=== PATIENT | female | born 1995 | race Caucasian/White ===

== ENCOUNTER 2019-08-20 18:31 | Emergency (ER) | payer BC, MEDICAID ==
[~2019-08-20] VITALS: Ht 167 cm; Wt 52.4 kg
[2019-08-20] MEDS ORDERED: FAMOTIDINE 20MG/2ML IV (PEPCID) IVP ONE (18:45)
[2019-08-20] MEDS ORDERED: ONDANSETRON 4 MG/2 ML (SDV) Z0FRAN IVP ONE (18:45)
[2019-08-20 19:08] LABS: BASOPHILS % (AUTO) 0 % (0-10); EOSINOPHILS % (AUTO) 0 % (0-10); HEMATOCRIT 45 % (35-52); HEMOGLOBIN 15.1 G/DL (11.5-16.0); LYMPHOCYTES % (AUTO) 2 % (12-44); MEAN CORPUSCULAR HEMOGLOBIN 31 PG (25-34); MEAN CORPUSCULAR HGB CONC 34 G/DL (32-36); MEAN CORPUSCULAR VOLUME 91 FL (80-99); MONOCYTES % (AUTO) 4 % (0-12); PLATELET COUNT 209 10^3/uL (130-400); RED CELL DISTRIBUTION WIDTH 12.3 % (10.0-14.5); WHITE BLOOD COUNT 14.7 10^3/uL (4.3-11.0)
[2019-08-20] MEDS: NS IV 1000 ML 1,000 ML IV SCH ×2 (19:08→19:56)
[2019-08-20 19:09] LABS: LYMPHOCYTES # (AUTO) 0.3 X 10^3 (1.0-4.0); MONOCYTES # (AUTO) 0.6 X 10^3 (0.0-1.0); NEUTROPHILS # (AUTO) 13.7 X 10^3 (1.8-7.8); NEUTROPHILS % (AUTO) 94 % (42-75)
--- NOTE | 2019-08-20 19:14 | ED Abdominal Pain ---
General Chief Complaint: Abdominal/GI Problems Stated Complaint: VOMITING, PT 11 WEEKS Nursing Triage Note: Started vomiting around noon today and has been vomiting approximately every 30 minutes. States her son has been sick with a stomach bug. Is [address] Barrientos is her ob doctor. Sepsis Screen: No Definite Risk Source of Information: Patient History of Present Illness Date Seen by Provider: Aug 20, 2019 Time Seen by Provider: 18:50 Initial Comments Patient is a 24-year-old G2, P1, estimated 11 week gestation feel fell who presents with daily nausea and vomiting for the past several weeks and reported 15 pound weight loss as far during current . Patient reports diffuse abdominal pain, cramping with multiple emesis in the past several hours with inability to keep fluids and food down. Patient states she is also being exposed to recent GI illness as her [id number] son has stomach flu. Patient states she has Zofran at home but did not want wish to take she expressed concern that doing so may prolong her current illness. No fever chills or sweats. No hematemesis. No other acute symptoms or complaints. Timing/Duration: 4-6 Hours Severity/Quality: Moderate Location: Epigastric Radiation: No Radiation Activities at Onset: None Modifying Factors: Improves With Antacids Associated Symptoms: Nausea/Vomiting Allergies and Home Medications Allergies Coded Allergies: No Known Drug Allergies (Unverified , 08/20/19) Patient Home Medication List Home Medication List Reviewed: Yes Review of Systems Review of Systems Constitutional: see HPI EENTM: See HPI Respiratory: See HPI Cardiovascular: See HPI Gastrointestinal: See HPI Genitourinary: See HPI Musculoskeletal: see HPI Skin: see HPI Psychiatric/Neurological: See HPI Endocrine: See HPI Hematologic/Lymphatic: See HPI Past Epyotsz-Fguftq-Fpolif Hx Patient Social History Alcohol Use: Denies Use Recreational Drug Use: No Smoking Status: Never a Smoker 2nd Hand Smoke Exposure: No Recent Foreign Travel: No Contact w/Someone Who Travel: No Recent Infectious Disease Expo: No Recent Hopitalizations: No Physical Abuse: No Sexual Abuse: No Mistreated: No Fear: No Seasonal Allergies Seasonal Allergies: No Past Medical History Surgeries: No Respiratory: No Cardiac: No Neurological: No Genitourinary: No Gastrointestinal: No Musculoskeletal: No Endocrine: No HEENT: No Cancer: No Psychosocial: No Integumentary: No Physical Exam Vital Signs Vital Signs - First Documented 08/20/19 18:46 Temp 36.4 Pulse 101 Resp 18 B/P (MAP) 119/79 (92) Pulse Ox 99 Capillary Refill : Less Than 3 Seconds Height/Weight/BMI Height: '" Weight: lbs. oz. kg; 18.00 BMI Method: General Appearance: WD/WN, no apparent distress HEENT: PERRL/EOMI Neck: non-tender, full range of motion, supple Respiratory: chest non-tender, lungs clear Cardiovascular: normal peripheral pulses, regular rate, rhythm Gastrointestinal: soft, tenderness (diffuse abdmominal pain/ttp) Extremities: normal range of motion, non-tender Back: normal inspection, no CVA tenderness Pelvic: normal adnexa Neurologic/Psychiatric: event decorator II-XII nml as tested, normal mood/affect Focused Exam Sepsis Stage: Ruled Out Progress/Results/Core Measures Results/Orders Lab Results Laboratory Tests Test 08/20/19 18:38 08/20/19 18:59 Range/Units Urine Color YELLOW Urine Clarity CLEAR Urine pH 6.0 5-9 Urine Specific [place] >=1.030 1.016-1.022 Urine Protein NEGATIVE NEGATIVE Urine Glucose (UA) NEGATIVE NEGATIVE Urine Ketones 3+ H NEGATIVE Urine Nitrite NEGATIVE NEGATIVE Urine Bilirubin NEGATIVE NEGATIVE Urine Urobilinogen 0.2 NORMAL MG/DL Urine Leukocyte Esterase NEGATIVE NEGATIVE Urine RBC (Auto) NEGATIVE NEGATIVE White Blood Count 14.7 H 4.3-11.0 10^3/uL Red Blood Count 4.91 4.35-5.85 10^6/uL Hemoglobin 15.1 11.5-16.0 G/DL Hematocrit 45 35-52 % Mean Corpuscular Volume 91 80-99 FL Mean Corpuscular Hemoglobin 31 25-34 PG Mean Corpuscular Hemoglobin Concent 34 32-36 G/DL Red Cell Distribution Width 12.3 10.0-14.5 % Platelet Count 209 130-400 10^3/uL Mean Platelet Volume 10.0 7.4-10.4 FL Neutrophils (%) (Auto) 94 H 42-75 % Lymphocytes (%) (Auto) 2 L 12-44 % Monocytes (%) (Auto) 4 0-12 % Eosinophils (%) (Auto) 0 0-10 % Basophils (%) (Auto) 0 0-10 % Neutrophils # (Auto) 13.7 H 1.8-7.8 X 10^3 Lymphocytes # (Auto) 0.3 L 1.0-4.0 X 10^3 Monocytes # (Auto) 0.6 0.0-1.0 X 10^3 Eosinophils # (Auto) 0.0 0.0-0.3 10^3/uL Basophils # (Auto) 0.0 0.0-0.1 10^3/uL Neutrophils % (Manual) 62 % Lymphocytes % (Manual) 3 % Monocytes % (Manual) 5 % Band Neutrophils 30 % Blood Morphology Comment NORMAL Sodium Level 139 135-145 MMOL/L Potassium Level 3.7 3.6-5.0 MMOL/L Chloride Level 103 98-107 MMOL/L Carbon Dioxide Level 22 21-32 MMOL/L Anion Gap 14 5-14 MMOL/L Blood Urea Nitrogen 13 7-18 MG/DL Creatinine 0.62 0.60-1.30 MG/DL Estimat Glomerular Filtration Rate > 60 BUN/Creatinine Ratio 21 Glucose Level 117 H 70-105 MG/DL Calcium Level 9.8 8.5-10.1 MG/DL Corrected Calcium 8.5-10.1 MG/DL Total Bilirubin 0.4 0.1-1.0 MG/DL Aspartate Amino Transf (AST/SGOT) 17 5-34 U/L Alanine Aminotransferase (ALT/SGPT) 15 0-55 U/L Alkaline Phosphatase 79 40-136 U/L Total Protein 8.0 6.4-8.2 GM/DL Albumin 4.9 H 3.2-4.5 GM/DL Human Chorionic Gonadotropin, Quant 33634 H <5 MIU/ML My Orders Orders - SANDRA WOO DO Cbc With Automated Diff (08/20/19 18:45) Comprehensive Metabolic Panel (08/20/19 18:45) Hcg,Quantitative (08/20/19 18:45) Ns Iv 1000 Ml (Sodium Chloride 0.9%) (08/20/19 18:45) Famotidine Injection (Pepcid Injection) (08/20/19 18:45) Ondansetron Injection (Zofran Injectio (08/20/19 18:45) Ed Iv/Invasive Line Start (08/20/19 19:15) Manual Differential (08/20/19 18:59) Metoclopramide Injection (Reglan Injecti (08/20/19 20:30) Urinalysis Dipstick Only (08/20/19 20:22) Medications Given in ED Current Medications Medications Dose Ordered Sig/Vera Route Start Time Stop Time Status Last Admin Dose Admin Famotidine 20 mg ONCE ONCE IVP 08/20/19 18:45 08/20/19 18:54 DC 08/20/19 19:07 20 MG Metoclopramide HCl 10 mg ONCE ONCE IVP 08/20/19 20:30 08/20/19 20:31 DC 08/20/19 20:28 10 MG Ondansetron HCl 8 mg ONCE ONCE IVP 08/20/19 18:45 08/20/19 18:54 DC 08/20/19 19:08 8 MG Vital Signs/I&O 08/20/19 18:46 Temp 36.4 Pulse 101 Resp 18 B/P (MAP) 119/79 (92) Pulse Ox 99 Blood Pressure Mean: 92 Departure Communication (Admissions) Abdomen soft, nonsurgical on repeat evaluation. IV fluids, Zofran and Reglan given with significant improvement. Patient states she feels better. No vomiting in the emergency department. 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 Return precautions reviewed. Patient verbalizes understanding and agreement discharge instructions prior to departure. Impression Primary Impression: Abdominal pain Additional Impressions: Nausea and vomiting Second trimester Disposition: 01 HOME, SELF-CARE Condition: Improved Departure-Patient Inst. Referrals: CATIE BARRIENTOS MD (PCP) Primary Care Physician Patient Instructions: Nausea and Vomiting of (DC), Nausea and Vomiting, Adult (DC) Add. Discharge Instructions: Please continue home nausea nausea medications. Drink clear liquids for the next 6-12 hours and gradually increase to bland diet as tolerated. Follow with your PCP in the next 2-3 days for re-evaluation. Return to the ED if new or worsening symptoms. All discharge instructions reviewed with patient and/or family. Voiced understanding. SANDRA WOO DO Aug 20, 2019 19:14
[2019-08-20 19:33] LABS: ALANINE AMINOTRANSFERASE 15 U/L (0-55); ALKALINE PHOSPHATASE 79 U/L (40-136); BILIRUBIN,TOTAL 0.4 MG/DL (0.1-1.0); BUN/CREATININE RATIO 21; CALCIUM 9.8 MG/DL (8.5-10.1); CARBON DIOXIDE 22 MMOL/L (21-32); CHLORIDE 103 MMOL/L (98-107); CREATININE SERUM 0.62 MG/DL (0.60-1.30); GFR ESTIMATED > 60; GLUCOSE 117 MG/DL (70-105); POTASSIUM 3.7 MMOL/L (3.6-5.0); SODIUM 139 MMOL/L (135-145)
[2019-08-20 19:34] LABS: ALBUMIN 4.9 GM/DL (3.2-4.5); BAND NEUTROPHILS 30 %; LYMPHOCYTES % (MANUAL) 3 %; MONOCYTES % (MANUAL) 5 %; NEUTROPHILS % (MANUAL) 62 %
[2019-08-20 19:35] LABS: RBC MORPH NORMAL
[2019-08-20] MEDS ORDERED: METOCLOPRAMIDE INJ 10 MG/2 ML (REGLAN) IVP ONE (20:30)
[2019-08-20 20:31] LABS: BILIRUBIN,URINE NEGATIVE (NEGATIVE); CLARITY,URINE CLEAR; COLOR,URINE YELLOW; GLUCOSE, URINE (UA) NEGATIVE (NEGATIVE); KETONES,URINE 3+ (NEGATIVE); LEUKOCYTE ESTERASE ,URINE NEGATIVE (NEGATIVE); NITRITE,URINE NEGATIVE (NEGATIVE); PROTEIN,URINE NEGATIVE (NEGATIVE)
[2019-08-20 21:05] VITALS: BP 119/68
== END 2019-08-20 21:04 | disposition home or self-care (01) ==
LOC: ER FS 18:33
DX: O26.891 Other specified pregnancy related conditions, first trimester (principal); R10.84 Generalized abdominal pain; O21.0 Mild hyperemesis gravidarum; Z3A.11 11 weeks gestation of pregnancy
CPT/HCPCS: 36415; 80053; 81002; 84702; 85007; 85027

== ENCOUNTER → 2020-02-15 | Outpatient (CLI) | payer BC, MEDICAID | LOC: LABNPT 16:05 | PROVIDERS: ATTEND Family Medicine | DX: Z34.90 Encounter for supervision of normal pregnancy, unspecified, unspecified trimester (principal) | CPT/HCPCS: 87081 ==

== ENCOUNTER 2020-03-09 08:58 | Inpatient (IN) | payer BC, MEDICAID ==
[2020-03-09] VITALS (43 sets, daily range): BP systolic 88–137; BP diastolic 51–88
[~2020-03-09] VITALS: Ht 167.7 cm; Wt 73.2 kg
--- NOTE | 2020-03-09 09:30 | NUR ---
LENANA CRUZ presented to unit from ED, accompanied by Significant Other, with c/o LABOR. LEANNA CRUZ weighed, gowned, voided, and to bed. EFHM and TOCO applied, VS taken. LEANNA CRUZ oriented to bed controls, call light, TV, heat, and A/C controls. Addendum: 03/09/20 at 1205 by MACHO CASTORENA RN Time should be 0900!
--- NOTE | 2020-03-09 09:54 | History & Physical-OB ---
OB - Chief Complaint & HPI Date/Time Date of Admission: Date of Admission: Date seen by a Provider: March 09, 2020 Time Seen by a Provider: 09:52 Chief Complaint/History OB-Reason for Admission/Chief: Rupture of Membranes Hx : 2 Hx Para: 1 Gestational Age in Weeks: 39 Gestational Age in Days: 5 Admission Nurse Assessment Rev: Yes Allergies and Home Medications Allergies Coded Allergies: No Known Drug Allergies (Unverified , 08/20/19) Patient Home Medication List Home Medication List Reviewed: Yes OB - History Hx of Present Ultrasounds: Normal mid trimester US Obstetrical Complications: None Medical Complications: None Patient Past Medical History previously healthy Social History/Family History 2nd Hand Smoke Exposure: No OB - Admission Exam Physical Exam HEENT: NCAT Heart: Rhythm Normal Lungs: Clear Abdomen: Gravid Extremities: Normal Reflexes: Normal Cervical Dilatation: 2cm Effacement: 50% Station: Ballotable Membranes: Ruptured Amniotic Fluid: Clear Heart Rate: 130's Accelerations: Accelerations Present Decelerations: No Decelerations Short Term Variability: Present Fdc Variability: Average (6-25) Contractions on Admission: < 5 Minutes Apart OB - Assessment/Plan/Diagnosis Assessment Assessment: rupture of membranes Admission Dx PROM at 39 5/7 wga. Admission Status: Inpatient Order (span 2 midnights) Reason for Inpatient Admission: PROM at 39 5/7 wga. Plan Induction Method: per Misoprostol Protocol Other Plan She has been ruptured for 4 hours with no cervical change or pain. I think we should augment with pitocin. Epidural for pain. GBS negative. Beside ultrasound to check on position. CATIE BARRIENTOS MD March 09, 2020 09:54
[2020-03-09] MEDS ORDERED: OXYTOCIN PRE-MIX DRIP 500 ML IV ONE (10:18)
[2020-03-09] MEDS ORDERED: D5 LR IV SOLUTION 1,000 ML IV ONE (10:18)
[2020-03-09] MEDS ORDERED: OXYTOCIN PRE-MIX DRIP 500 ML IV SCH (10:21)
[2020-03-09 10:29] LABS: BASOPHILS % (AUTO) 0 % (0-10); EOSINOPHILS # (AUTO) 0.1 10^3/uL (0.0-0.3); EOSINOPHILS % (AUTO) 1 % (0-10); HEMATOCRIT 32 % (35-52); HEMOGLOBIN 10.2 G/DL (11.5-16.0); LYMPHOCYTES # (AUTO) 1.2 X 10^3 (1.0-4.0); LYMPHOCYTES % (AUTO) 12 % (12-44); MEAN CORPUSCULAR HEMOGLOBIN 27 PG (25-34); MEAN CORPUSCULAR HGB CONC 32 G/DL (32-36); MEAN CORPUSCULAR VOLUME 85 FL (80-99); MEAN PLATELET VOLUME 10.5 FL (7.4-10.4); MONOCYTES # (AUTO) 0.8 X 10^3 (0.0-1.0); MONOCYTES % (AUTO) 7 % (0-12); NEUTROPHILS # (AUTO) 8.6 X 10^3 (1.8-7.8); NEUTROPHILS % (AUTO) 81 % (42-75); PLATELET COUNT 220 10^3/uL (130-400); RED CELL DISTRIBUTION WIDTH 13.9 % (10.0-14.5); WHITE BLOOD COUNT 10.7 10^3/uL (4.3-11.0)
[2020-03-09] MEDS ORDERED: LIDOCAINE 1% INJ 20 ML 20 ML VIAL INJ PRN (10:30)
[2020-03-09] MEDS ORDERED: MINERAL OIL CONCENTRATE 99.9% 15 ML UDC TOP PRN (10:30)
--- OUTSIDE RECORDS SUMMARY | 2020-03-09 10:32 | XMS REPORT ---
Author Author Ines BARRIENTOSra CATIE Organization [facility] Address [address] [place] [address] Care Team Providers Care Joiner Name Role Phone CATIE BARRIENTOS Unavailable PROBLEMS Type Condition ICD9-CM Code ZVM08-MB Code Onset Dates Condition S tatus SNOMED Code Problem Encounter for supervision of normal firs t in first trimester Z34.01 Mar, Active 875323632 Problem Abnormal laboratory test result R89.9 Active [id number] Problem Tobacco use Z72.0 Mar, Active 93423 3000 Problem Normal labor O80 Sep, Active 6745 8599 ALLERGIES No Information ENCOUNTERS Encounter Location Date Diagnosis [address] [place] [address] Sep, Supervision of other normal Z34.80 [address] [place] [address] Sep, Encounter for supervision of normal first in first trimester Z34.01 and 20 weeks gestation of Z3A.20 [address] [place] [address] Sep, Supervision of other normal Z34.80 [address] [place] [address] Aug, [address] [place] [address] Aug, [address] [place] [address] Aug, Supervision of other normal Z34.80 and 16 weeks gestation of Z3A.16 [address] [place] [address] Aug, Near syncope R55 and Supervi kel of other normal Z34.[address] [place] [address] Jul, Viral gastroenteritis A08.4 [facility] [address] [id number] [place] [address] Jul, [address] [place] [address] Jul, [address] [place] [address] Jul, [address] [place] [address] Jul, Supervision of other normal Z34.80 [address] [place] [address] Jul, [address] [place] [address] Jul, Encounter for supervision of normal first in first trimester Z34.01 [address] [place] [address] Jul, Encounter for test , result unknown Z32.[address] [place] [address] May, Abnormal laboratory test res ult R89.9 and Dietary counseling Z71.3 [address] [place] [address] May, care and examinat ion Z39.2 [address] [place] [address] February, [address] [place] [address] Jan, [address] [place] [address] Jan, Acute non-recurrent maxillar y sinusitis J01.00 [facility] [place] [address] [place] [address] Dec, Vaginal discharge N89.8 [facility] [place] [place] [address] [place] [address] Dec, [facility] [address] [place] [address] Dec, [facility] [place] [address] [place] [address] Dec, [facility] [place] [address] [place] [address] Dec, care and examinat ion Z39.2 [facility] [id number] [place] [address] Sep, [facility] [id number] [place] [address] Sep, [facility] [id number] [place] [address] Sep, [facility] [id number] [place] [address] Sep, [facility] [id number] [place] [address] Sep, [facility] [id number] [place] [address] Jul, [facility] [id number] [place] [address] Jul, IMMUNIZATIONS No Known Immunizations SOCIAL HISTORY Never Assessed REASON FOR VISIT Medication question PLAN OF CARE VITAL SIGNS MEDICATIONS Unknown Medications RESULTS No Results PROCEDURES No Known procedures INSTRUCTIONS MEDICATIONS ADMINISTERED No Known Medications MEDICAL (GENERAL) HISTORY Type Description Date Hospitalization History childbirth only
--- OUTSIDE RECORDS SUMMARY | 2020-03-09 10:33 | XMS REPORT | Continuity of Care Document ---
Author Organization Unknown Address Unknown Phone Unavailable Allergies Active Description Code Type Severity Reaction Onset Reported/Identified Relationship to Patient Clinical Status Yes No Known Drug Allergies [id number] Drug Allergy Unknown N/A 08/20/2019 Medications There is no data. Problems Date Dx Coded Attending Type Code Diagnosis Diagnosed By 08/20/2019 AMNA RODRIGUEZ, SANDRA Ot O21.0 MILD HYPEREMESIS GRAVIDARUM 08/20/2019 WOO DO, SANDRA Ot O26.891 OT RELATED CONDITIONS, FIRST 08/20/2019 WOO DO, SANDRA Ot R10.84 GENERALIZED ABDOMINAL PAIN 08/20/2019 WOO DO, SANDRA Ot Z3A.11 11 WEEKS GESTATION OF 08/23/2019 WOO DO, SANDRA Ot O21.0 MILD HYPEREMESIS GRAVIDARUM 08/23/2019 WOO DO, SANDRA Ot O26.891 OT RELATED CONDITIONS, FIRST 08/23/2019 WOO DO, SANDRA Ot R10.84 GENERALIZED ABDOMINAL PAIN 08/23/2019 WOO , SANDRA Ot Z3A.11 11 WEEKS GESTATION OF 02/18/2020 FLOYD WELSH, CATIE Velasquez Ot Z34.90 ENCNTR FOR SUPRVSN OF NORMAL , 02/20/2020 CATIE BARRIENTOS MD Ot Z34.90 ENCNTR FOR SUPRVSN OF NORMAL , 03/05/2020 CATIE BARRIENTOS MD Ot Z34.90 ENCNTR FOR SUPRVSN OF NORMAL , Procedures There is no data. Results Test Result Range TEST, SERUM (QUAL) - 07/11/19 14:15 HCG, TOTAL, QL POSITIVE See Note: SU[employer]PATH PAP RFX HPV mRNA E6/E7 - 09:37 CLINICAL INFORMATION: NRG LMP: 06/04/19 NRG PREV. PAP: NRG PREV. 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: NRG INFECTION: NRG COMMENT NRG HEP B SURFACE ANTIGEN - 08/08/19 10:09 HEPATITIS B SURFACE ANTIGEN NON-REACTIVE NON-REACTIVE RUBELLA IMMUNE STATUS - 08/08/19 10:09 RUBELLA ANTIBODY (IGG) 3.06 index NRG CULTURE, URINE - 08/08/19 10:09 CULTURE, URINE, ROUTINE SEE NOTE NRG Automated dipstick urinalysis - 08/20/19 18:38 Urine color determination YELLOW NRG Urine clarity determination CLEAR NR G Urine pH measurement by test strip 6.0 5-9 Specific gravity of urine by test strip >= 1.016-1.022 Urine protein assay by test strip, semi-quantitative NEGATIVE NEGATIVE Urine glucose detection by automated test strip NE GATIVE NEGATIVE Erythrocytes detection in urine sediment by light micr oscopy NEGATIVE NEGATIVE Urine ketones detection by automated test strip 3+ NEGATIVE Urine nitrite detection by test strip NEGATIVE NEGATIVE Urine total bilirubin detection by test strip NEGA TIVE NEGATIVE Urine urobilinogen measurement by automated test strip (mass/volume) 0.2 mg/dL NORMAL Urine leukocyte esterase detection by dipstick NEG ATIVE NEGATIVE Complete blood count (CBC) with automate d white blood cell (WBC) differential - 08/20/19 18:59 Blood leukocytes automated count (number/volume) 14.7 10*3/uL 4.3-11.0 Blood erythrocytes automated count (number/volume) 4.91 10*6/uL 4.35-5.85 Venous blood hemoglobin measurement (mass/volume) 15.1 g/dL 11.5-16.0 Blood hematocrit (volume fraction) 45 % 35-52 Automated erythrocyte mean corpuscular volume 91 [ foz_us] 80-99 Automated erythrocyte mean corpuscular h emoglobin (mass per erythrocyte) 31 pg 25-34 Automated erythrocyte mean corpuscular h emoglobin concentration measurement (mass/volume) 34 g/dL 32-36 Automated erythrocyte distribution width ratio 12. 3 % 10.0- 14.5 Automated blood platelet count (count/volume) 209 10*3/uL 130-400 Automated blood platelet mean volume measurement 10.0 [foz_us] 7.4-10.4 Automated blood neutrophils/100 leukocytes 94 % 42-75 Automated blood lymphocytes/100 leukocytes 2 % 12-44 Blood monocytes/100 leukocytes 4 % 0-12 Automated blood eosinophils/100 leukocytes 0 % 0-10 Automated blood basophils/100 leukocytes 0 % 0-10 Blood neutrophils automated count (number/volume) 13.7 10*3 1.8-7.8 Blood lymphocytes automated count (number/volume) 0.3 10*3 1.0-4.0 Blood monocytes automated count (number/volume) 0. 6 10*3 0.0-1.0 Automated eosinophil count 0.0 10*3/uL 0 .0-0.3 Automated blood basophil count (count/volume) 0.0 10*3/uL 0.0-0.1 Manual absolute plasma cell count - 08/01 11/18 18:59 Blood monocytes/100 leukocytes 5 % NRG Manual blood segmented neutrophils/100 leukocytes 62 % NRG Blood band neutrophils/100 leukocytes 30 % NRG Manual blood lymphocytes/100 leukocytes 3 % NRG Blood erythrocyte morphology finding identification NORMAL [facility] Comprehensive metabolic panel - 08/20/19 18:59 Serum or plasma sodium measurement (moles/volume) 139 mmol/L 135-145 Serum or plasma potassium measurement (moles/volume) 3.7 mmol/L 3.6-5.0 Serum or plasma chloride measurement (moles/volume) 103 mmol/L 98-107 Carbon dioxide 22 mmol/L 21-32 Serum or plasma anion gap determination (moles/volume) 14 mmol/L 5-14 Serum or plasma urea nitrogen measurement (mass/volume ) 13 mg/dL 7-18 Serum or plasma creatinine measurement (mass/volume) 0.62 mg/dL 0.60-1.30 Serum or plasma urea nitrogen/creatinine mass ratio 21 NRG Serum or plasma creatinine measurement w ith calculation of estimated glomerular filtration rate > NRG Serum or plasma glucose measurement (mass/volume) 117 mg/dL 70-105 Serum or plasma calcium measurement (mass/volume) 9.8 mg/dL 8.5-10.1 Serum or plasma total bilirubin measurement (mass/volu me) 0.4 mg/dL 0.1-1.0 Serum or plasma alkaline phosphatase ngoc surement (enzymatic activity/volume) 79 U/L 40-136 Serum or plasma aspartate aminotransfera se measurement (enzymatic activity/volume) 17 U/L 5-34 Serum or plasma alanine aminotransferase measurement (enzymatic activity/volume) 15 U/L 0-55 Serum or plasma protein measurement (mass/volume) 8.0 g/dL 6.4-8.2 Serum or plasma albumin measurement (mass/volume) 4.9 g/dL 3.2-4.5 Serum or plasma choriogonadotropin measu rement (units/volume) - 08/20/19 18:59 Serum or plasma choriogonadotropin measurement (units/ volume) 52429 m[iU]/mL <5 Streptococcus agalactiae detection by or ganism specific culture - 02/15/20 00:00 Complete blood count (CBC) with automate d white blood cell (WBC) differential - 03/09/20 09:50 Blood leukocytes automated count (number/volume) 10.7 10*3/uL 4.3-11.0 Blood erythrocytes automated count (number/volume) 3.77 10*6/uL 4.35-5.85 Venous blood hemoglobin measurement (mass/volume) 10.2 g/dL 11.5-16.0 Blood hematocrit (volume fraction) 32 % 35-52 Automated erythrocyte mean corpuscular volume 85 [ foz_us] 80-99 Automated erythrocyte mean corpuscular h emoglobin (mass per erythrocyte) 27 pg 25-34 Automated erythrocyte mean corpuscular h emoglobin concentration measurement (mass/volume) 32 g/dL 32-36 Automated erythrocyte distribution width ratio 13. 9 % 10.0- 14.5 Automated blood platelet count (count/volume) 220 10*3/uL 130-400 Automated blood platelet mean volume measurement 10.5 [foz_us] 7.4-10.4 Automated blood neutrophils/100 leukocytes 81 % 42-75 Automated blood lymphocytes/100 leukocytes 12 % 12-44 Blood monocytes/100 leukocytes 7 % 0-12 Automated blood eosinophils/100 leukocytes 1 % 0-10 Automated blood basophils/100 leukocytes 0 % 0-10 Blood neutrophils automated count (number/volume) 8.6 10*3 1.8-7.8 Blood lymphocytes automated count (number/volume) 1.2 10*3 1.0-4.0 Blood monocytes automated count (number/volume) 0. 8 10*3 0.0-1.0 Automated eosinophil count 0.1 10*3/uL 0 .0-0.3 Automated blood basophil count (count/volume) 0.0 10*3/uL 0.0-0.1 Encounters ACCT No. Visit Date/Time Discharge Status Pt. Type Provider Facility Loc./Unit Complaint [id number] 10/25/2019 08:40:00 10/25/2019 23:59:5 9 CLS Outpatient CATIE BARRIENTOS [facility] [id number] 08/08/2019 09:00:00 Document Registration [id number] 07/11/2019 14:00:00 Document Registration [id number] 02/15/2020 16:05:00 23:59:59 CLS Outpatient CATIE BARRIENTOS MD [facility] LABT [id number] 08/20/2019 18:33:00 21:04:00 DIS Emergency SANDRA WOO DO [facility] ER FS VOMITING, PT 11 WEEKS P REGSPENCERT [id number] 03/09/2020 10:30:00 Document Registration
[2020-03-09] MEDS: D5 LR IV SOLUTION 1,000 ML IV SCH ×2 (10:42→18:30)
[2020-03-09] MEDS ORDERED: CATHETER FLUSH 10 ML SYR IV SCH ×2 (14:00→22:00)
[2020-03-09] MEDS ORDERED: fentaNYL 2 mcg/ml BUPIVA 0.125 100 ML ONE (15:37)
[2020-03-09] MEDS ORDERED: fentaNYL INJECTION 100 MCG/2 ML AMP ONE (16:07)
[2020-03-09] MEDS ORDERED: BUPIVACAINE 0.25% 30 ML (SENSORCAINE) VIAL ONE (16:07)
--- NOTE | 2020-03-09 16:15 | NUR ---
Marvin Alcala CLASSIFICATION ANALYST here for epidural placement. Procedure explained, consent reviewed and signed by anesthesia. Questions answered to patient's satisfaction. Time out taken to verify correct patient/procedure. Patient up to side of bed, assisted into sitting position. Betadine prep done x3 and sterile drape applied. Local done, see anesthesia record. Test dose given, see anesthesia record for drug and dosage. Epidural catheter secured in place. Epidural placement complete. Assisted back into bed, monitors adjusted. Epidural dosed, see anesthesia record. Epidural of Fentanyl/Bupvicaine @ 12 cc/hr stated per pump. Patient tolerated procedure well.
[2020-03-09] MEDS ORDERED: ONDANSETRON 4 MG/2 ML (SDV) Z0FRAN IV PRN (17:15)
[2020-03-09] MEDS ORDERED: EPIDURAL (fentaNYL 2 MCG/ML BUPIVA 0.125%)100 ML BAG EPI PRN (17:15)
[2020-03-09] MEDS ORDERED: diphenhydrAMINE 50 MG/ML INJ (BENADRYL) IV PRN (17:15)
[2020-03-09] MEDS ORDERED: NALOXONE 0.4 MG/ML 1 ML (NARCAN) VIAL IV PRN ×2 (17:15)
[2020-03-09] MEDS ORDERED: METOCLOPRAMIDE INJ 10 MG/2 ML (REGLAN) IV PRN (17:15)
[2020-03-09] MEDS ORDERED: LACTATED RINGERS 1,000 ML IV SCH (17:15)
[2020-03-09] MEDS ORDERED: MEASLES,MUMPS,RUBELLA 1 EA INJ SQ ONE (18:30)
[2020-03-09] MEDS ORDERED: WITCH HAZEL(TUCKS) 40 EA JAR TOP PRN (18:30)
[2020-03-09] MEDS ORDERED: TETANUS,DIPTH,PERTUSS P/F (BOOSTRIX) 0.5 ML VIAL IM ONE (18:30)
[2020-03-09] MEDS ORDERED: BENZOCAINE/MENTHOL (DERMOPLAST) 60 ML CAN TP PRN (18:30)
--- NOTE | 2020-03-09 19:39 | NUR ---
EMAR NOTE: Pitocin infusion to 999ml per hour. This bag was medication used during induction/labor phase and was also used as first bag administration to complete full (2bag) 1,000ml dosing on order set. Addendum: 03/10/20 at 0155 by KEVIN BISHOP RN time for 1944
[2020-03-09] MEDS: OXYTOCIN PRE-MIX DRIP 500 ML IV SCH (20:03)
--- NOTE | 2020-03-09 20:03 | OB Labor & Delivery Record ---
Vag Delivery Note Vag Delivery Note Date of Delivery: 03/09/20 Preoperative Diagnosis: Lulu Arcos is a (24 /Para 2 / 1,Gestational Age (wks)39with [] Postoperative Diagnosis: Same Surgeon: CATIE BARRIENTOS Compliance Field Technician: [none] Anesthesia: [epidural] Delivery Type: [] Findings: [] Viable [female] , apgars 8/9 Lacerations: Intact placenta with 3 vessel cord. No nuchal cord, body cord. Persistent OP position with shoulder dystocia Estimated Blood Loss: [250] ml Complications: None Condition: Stable Description of Procedure: The patient is a 24 year old female who presented [in labor]. She was admitted and informed consent was obtained. Her labor course was remarkable for [OP presentation] She progressed to complete dilatation and began to push. She was then set up for delivery. The infant's head was delivered atraumatically in the [OP] position. The shoulders were stuck straight OP position and were delivered after 90 seconds. Upon delivery, the head was held below the level of the perineum and the mouth and nares were bulb suctioned. The cord was doubly clamped and cut after 120 seconds on maternal abdomen by father of baby. Cord avulsed and placenta was removed manually intact and there was found to be minimal bleeding.~ Vigorous fundal massage was performed and the fundus was found to be firm. IV oxytocin was given. Examination of the vagina and perineum revealed and no lacerations. Following the repair, sponge, instrument and needle counts were correct. Mom and baby were both in stable condition in the labor suite. Vitals - Labs Vital Signs - I&O Vital Signs Date Time Temp Pulse Resp B/P (MAP) Pulse Ox O2 Delivery O2 Flow Rate FiO2 03/09/20 19:03 36.6 83 16 103/64 (77) Room Air 03/09/20 19:00 73 16 95/56 (69) Room Air 03/09/20 18:45 79 16 97/64 (75) Room Air 03/09/20 18:30 85 16 97/60 (72) Room Air 03/09/20 18:15 83 16 107/61 (76) Room Air 03/09/20 18:00 36.4 75 16 99/55 (70) Room Air 03/09/20 17:45 36.4 78 16 100/55 (70) Room Air 03/09/20 17:30 87 16 108/64 (79) Room Air 03/09/20 17:15 78 16 110/63 (79) Room Air 03/09/20 17:00 106 16 122/57 (78) Room Air 03/09/20 16:45 98 16 109/55 (73) Room Air 03/09/20 16:30 93 16 132/82 (99) 100 Room Air 03/09/20 16:25 117 18 137/88 (104) 99 Room Air 03/09/20 16:22 79 18 119/81 (94) 100 Room Air 03/09/20 16:15 36.5 93 16 121/83 (96) 100 Room Air 03/09/20 16:00 85 16 120/77 (91) Room Air 03/09/20 15:45 83 16 118/75 (89) Room Air 03/09/20 15:30 86 16 117/69 (85) Room Air 03/09/20 15:15 83 16 114/64 (81) Room Air 03/09/20 15:00 79 16 118/66 (83) Room Air 03/09/20 14:45 96 16 113/72 (86) Room Air 03/09/20 14:30 81 16 113/72 (86) Room Air 03/09/20 14:15 82 16 114/71 (85) Room Air 03/09/20 14:00 84 16 113/74 (87) Room Air 03/09/20 13:45 80 16 113/71 (85) Room Air 03/09/20 13:30 36.6 81 16 109/68 (82) Room Air 03/09/20 13:15 82 16 118/74 (89) Room Air 03/09/20 13:00 82 16 112/65 (81) Room Air 03/09/20 12:45 36.8 74 16 113/65 (81) Room Air 03/09/20 12:30 95 16 116/65 (82) Room Air 03/09/20 12:15 82 16 104/63 (77) Room Air 03/09/20 11:45 36.6 03/09/20 09:30 87 16 100 Room Air 03/09/20 09:18 36.6 82 16 100 Room Air Labs Laboratory Tests 5/10/20 09:50: White Blood Count 10.7, Red Blood Count 3.77L, Hemoglobin 10.2L, Hematocrit 32L, Mean Corpuscular Volume 85, Mean Corpuscular Hemoglobin 27, Mean Corpuscular Hemoglobin Concent 32, Red Cell Distribution Width 13.9, Platelet Count 220, Mean Platelet Volume 10.5H, Neutrophils (%) (Auto) 81H, Lymphocytes (%) (Auto) 12, Monocytes (%) (Auto) 7, Eosinophils (%) (Auto) 1, Basophils (%) (Auto) 0, Neutrophils # (Auto) 8.6H, Lymphocytes # (Auto) 1.2, Monocytes # (Auto) 0.8, Eosinophils # (Auto) 0.1, Basophils # (Auto) 0.0 CATIE BARRIENTOS MD March 09, 2020 20:03
--- NOTE | 2020-03-09 22:40 | NUR ---
Epidural cath removed, site wnl and left o/a. Pt reports site being sore. Pt standby assist to bathroom, pericare pads changed, pt voids, assisted to wc without incident and transferred to room 311. Oriented to call system and surroundings, shower set up at this time, pt denies needs. will cont to monitor.
[2020-03-10 01:15] VITALS: BP 93/57
--- NOTE | 2020-03-10 01:15 | NUR ---
Upon entering room to obtain vs, pt refuses next set to be taken, rn voices understanding.
[2020-03-10] MEDS: IBUPROFEN 600 MG (MOTRIN) TAB PO SCH ×4 (01:32→18:00)
[2020-03-10] MEDS: ACETAMINOPHEN 500 MG TAB (TYLENOL) PO SCH ×3 (01:33→19:34)
[2020-03-10] MEDS: OXYTOCIN PRE-MIX DRIP 500 ML IV SCH (01:41)
[2020-03-10 04:55] LABS: BASOPHILS % (AUTO) 0 % (0-10); EOSINOPHILS # (AUTO) 0.1 10^3/uL (0.0-0.3); EOSINOPHILS % (AUTO) 1 % (0-10); HEMATOCRIT 30 % (35-52); HEMOGLOBIN 9.6 G/DL (11.5-16.0); LYMPHOCYTES # (AUTO) 1.5 X 10^3 (1.0-4.0); LYMPHOCYTES % (AUTO) 11 % (12-44); MEAN CORPUSCULAR HEMOGLOBIN 27 PG (25-34); MEAN CORPUSCULAR HGB CONC 32 G/DL (32-36); MEAN CORPUSCULAR VOLUME 86 FL (80-99); MEAN PLATELET VOLUME 10.3 FL (7.4-10.4); MONOCYTES # (AUTO) 1.2 X 10^3 (0.0-1.0); MONOCYTES % (AUTO) 9 % (0-12); NEUTROPHILS # (AUTO) 11.1 X 10^3 (1.8-7.8); NEUTROPHILS % (AUTO) 80 % (42-75); PLATELET COUNT 185 10^3/uL (130-400); RED CELL DISTRIBUTION WIDTH 13.7 % (10.0-14.5)
[2020-03-10 06:02] LABS: LYMPHOCYTES % (MANUAL) 15 %; MONOCYTES % (MANUAL) 8 %; MYELOCYTES % 1 %; NEUTROPHILS % (MANUAL) 74 %
[2020-03-10 06:03] LABS: ANISOCYTOSIS SLIGHT; ATYPICAL LYMPHOCYTES 2 %; HYPOCHROMASIA MODERATE; POIKILOCYTOSIS SLIGHT; ROULEAUX SLIGHT
[2020-03-10 07:45] VITALS: BP 108/64
[2020-03-10] MEDS: DOCUSATE SODIUM 100 MG (COLACE) CAP PO SCH (09:00)
--- NOTE | 2020-03-10 10:28 | Anesthesia-Regional Post-Op ---
Regional Patient Condition Mental Status: Alert, Oriented x3 Circulation: Same as Pre-Op Headache: Absent Sensation: Full Recovery Motor Block: Absent Post Op Complications Complications None Follow Up Care/Instructions Patient Instructions None needed. Anesthesia/Patient Condition Patient is doing well, no complaints, stable vital signs, no apparent adverse anesthesia problems. No complications reported per nursing. CRISTIN MIRELES CRNA March 10, 2020 10:27
[2020-03-10 11:50] VITALS: BP 105/69
[2020-03-10 16:30] VITALS: BP 92/56
[2020-03-10] MEDS ORDERED: IBUP-844 PO (17:11)
--- NOTE | 2020-03-10 17:12 | Discharge Summary ---
Discharge Inst-[facility] Reconcile Patient Problems Problems Reviewed?: Yes Depart Medications New, Converted or Re-Newed RX: Transmitted to Pharmacy Follow Up/Instructions Goal/Follow Up: Dr. Barrientos in 6 weeks. Activity Activity: Activity as Tolerated Driving Instructions: You May Drive NO SMOKING: NO SMOKING Nothing Inside Vagina: No Douching, No [place], No Tampons Diet Discharge Diet: No Restrictions Symptoms to Report to : Fever Over 101 Degrees F, Vaginal Bleeding Increase For Any Problems or Questions: Contact Your Physician CATIE BARRIENTOS MD March 10, 2020 17:12
--- NOTE | 2020-03-10 17:14 | Discharge Summary ---
Diagnosis/Chief Complaint Date of Admission March 09, 2020 at 09:30 Date of Discharge March 10, 2020 Admission Diagnosis Admission Diagnosis PROM at 39 5/7 wga. Discharge Diagnosis Term vaginal delivery at 39 weeks. Problems/Diagnosis: (1) care following vaginal delivery Assessment & Plan: Normal. Discharge Summary-OBS Procedures None. Discharge Physical Examination Allergies: Coded Allergies: No Known Drug Allergies (Unverified , 08/20/19) Vitals & I&Os Intake and Output 03/10/20 00:00 Intake Total 2000 ml Balance 2000 ml Vital Sign - Last 12Hours Date Time Temp Pulse Resp B/P (MAP) Pulse Ox O2 Delivery O2 Flow Rate FiO2 03/10/20 16:30 36.8 81 16 92/56 (68) 99 Room Air General Appearance: Alert, Oriented X3 HEENT: Atraumatic Respiratory: Clear to Auscultation Cardiovascular: Regular Rate Abdominal: Other (fundus firm below umbilicus) Extremities: No Edema Skin: No Rashes Neuro: Normal Gait Psych/Mental Status: Mental Status NL Hospital Course Was the Problem List Reviewed?: Yes Post course was unremarkable. Labs Laboratory Tests 03/10/20 04:45: White Blood Count 14.0H, Red Blood Count 3.51L, Hemoglobin 9.6L, Hematocrit 30L, Mean Corpuscular Volume 86, Mean Corpuscular Hemoglobin 27, Mean Corpuscular Hemoglobin Concent 32, Red Cell Distribution Width 13.7, Platelet Count 185, Mean Platelet Volume 10.3, Neutrophils (%) (Auto) 80H, Lymphocytes (%) (Auto) 11L, Monocytes (%) (Auto) 9, Eosinophils (%) (Auto) 1, Basophils (%) (Auto) 0, Neutrophils # (Auto) 11.1H, Lymphocytes # (Auto) 1.5, Monocytes # (Auto) 1.2H, Eosinophils # (Auto) 0.1, Basophils # (Auto) 0.0, Neutrophils % (Manual) 74, Lymphocytes % (Manual) 15, Monocytes % (Manual) 8, Myelocytes % 1, Atypical Lymphocytes 2, Hypochromasia MODERATE, Poikilocytosis SLIGHT, Anisocytosis SLIGHT, Macrocytosis SLIGHT, Rouleau SLIGHT Discharge Instructions to patient/family Please see electronic discharge instructions given to patient. Discharge Medications Reviewed and agree with Discharge Medication list on patient's Discharge Instruction sheet Clinical Quality Measures DVT/VTE Risk/Contraindication: Risk Factor Score Per Nursin RFS Level Per Nursing on Admit: 1=Low/No VTE PPX CATIE BARRIENTOS MD March 10, 2020 17:14
[2020-03-10 22:30] VITALS: BP 114/73
[2020-03-11] MEDS: ACETAMINOPHEN 500 MG TAB (TYLENOL) PO SCH ×2 (04:02→09:00)
[2020-03-11 04:15] VITALS: BP 113/77
[2020-03-11] MEDS: IBUPROFEN 600 MG (MOTRIN) TAB PO SCH ×3 (05:37→09:00)
[2020-03-11 09:00] VITALS: BP 116/70
[2020-03-11] MEDS: DOCUSATE SODIUM 100 MG (COLACE) CAP PO SCH (09:00)
--- NOTE | 2020-03-11 10:45 | NUR ---
THIS RN GIVES AND EXPLAINS DC INSTRUCTIONS TO PT AND SO. PT DENIES QUESTIONS OR CONCERNS. RX CALLED TO LISTED PREFERRED PHARMACY.
== END 2020-03-11 10:55 | disposition home or self-care (01) | DRG 807 ==
LOC: LDRP 08:58 → WSo 08:58 → LDRP 09:30
PROVIDERS: ADMIT Family Medicine; ATTEND Family Medicine
PROC: 10E0XZZ Delivery of Products of Conception, External Approach (ICD-10-PCS; principal; 2020-03-09)
DX: O42.02 Full-term premature rupture of membranes, onset of labor within 24 hours of rupture (principal); O64.0XX0 Obstructed labor due to incomplete rotation of fetal head, not applicable or unspecified; O66.0 Obstructed labor due to shoulder dystocia; Z37.0 Single live birth; Z3A.39 39 weeks gestation of pregnancy
CPT/HCPCS: 36415; 85007; 85025; 85027; 86850; 86900; 86901; 99212

== ENCOUNTER → 2021-11-23 | Outpatient (CLI) | payer BC, MEDICAID ==
[~2021-11-23] MED LIST: CATHETER FLUSH 10 ML SYR IV PRN; IBUP-844 PO
--- NOTE | 2021-11-23 11:50 | Diagnostic Imaging Report ---
INDICATION: Epigastric pain EXAMINATION: HIDA scan from 11/23/2021. FINDINGS: After uneventful administration of 5.46 mCi of technetium 99m Choletec intravenously subsequent imaging was performed with prompt homogeneous uptake seen throughout the liver. Gallbladder and small bowel seen within less than 60 minutes. Subsequent administration of Ensure given orally with continued imaging performed. Ejection fraction is calculated at 66.7% IMPRESSION: 1. No obstructive process. 2. Normal ejection fraction. Dictated by: Dictated on workstation # [id number]
== END ==
LOC: CARD 10:00
PROVIDERS: ATTEND Surgery
DX: R10.13 Epigastric pain (principal)
CPT/HCPCS: 78227; A9537